=== PATIENT | female | born 1985 | race African-American/Black ===

== ENCOUNTER 2022-04-08 05:50 | Emergency (ER) | payer OTHER ==
[~2022-04-08] VITALS: Ht 167.6 cm; Wt 70.3 kg
[2022-04-08 05:52] VITALS: BP 135/77
--- NOTE | 2022-04-08 05:59 | NUR ---
TO BED 6 FROM TRIAGE
--- NOTE | 2022-04-08 06:08 | NUR ---
Dr. Vargas examining patient.
--- NOTE | 2022-04-08 06:24 | NUR ---
COVID AND FLU SWABS COLLECTED AND SENT TO LAB
--- NOTE | 2022-04-08 06:28 | NUR ---
37YR OLD FEMALE BIB SELF C/O FLU LIKE SX. PT STATES HAVING COVID A MONTH AGO COUGH, CONGESTION AND BODY MALAISE. PT IS AFEBRILE. A&OX2 RESP EVEN AND UNLABORED. PT SITTING UP IN BED WITH HOB ELEVATED. BED AT LOWEST POSITION. NKDA ASTHMA
--- NOTE | 2022-04-08 06:31 | NUR ---
PT TO XRAY
[2022-04-08] MEDS ORDERED: BENZ200C4 PO (06:55)
--- NOTE | 2022-04-08 07:04 | NUR ---
Patient discharged with v/s stable. Written and verbal after care instructions given and explained. Patient alert, oriented and verbalized understanding of instructions. Ambulatory with steady gait. All questions addressed prior to discharge. ID band removed. Patient advised to follow up with PMD. Rx of BENZONATATE given.
== END 2022-04-08 07:04 | disposition home or self-care (01) ==
LOC: MED 05:50
DX: B34.9 Viral infection, unspecified (principal); Z20.822 Contact with and (suspected) exposure to COVID-19; M54.50 Low back pain, unspecified; R05.9 Cough, unspecified; Z79.899 Other long term (current) drug therapy; Z98.890 Other specified postprocedural states
CPT/HCPCS: 71046; 99283; 99284